=== PATIENT | male | born 1990 | race American Indian/Alaskan Native ===

== ENCOUNTER 2016-08-12 13:03 | Emergency (ER) | payer SELFPAY ==
[2016-08-12 14:04] VITALS: BP 143/90
[2016-08-12] MEDS ORDERED: DUONEB 0.5 MG-3 MG/3 ML SOLN IH ONE ×2 (14:05→15:26)
--- NOTE | 2016-08-12 14:09 | Emergency Department Report ---
Chief Complaint: Adult Asthma Stated Complaint: ASTHMA Time Seen by Provider: 08/12/16 14:07 - HPI History of Present Illness: 35-year-old known asthmatic comes in for shortness of breath that started last night. Patient reports that about every 30 minutes he was getting up to use his albuterol inhaler. Patient reports that he's run out of his inhaler as of last night. He denies any chest pain denies any lower leg edema he reports no past medical history currently takes only albuterol as needed. He has not been having frequent asthma attacks. - Exam Vital Signs: Vital Signs 08/12/16 13:59 Temperature 98.3 F Pulse Rate 96 H Respiratory 20 Rate Blood Pressure 143/90 O2 Sat by Pulse 97 Oximetry Physical Exam: Gen: alert oriented NAD Cardic: regular rate and rhythm no murmurs appreciated Resp: Expiratory wheezing Abdomen: Soft nontender nondistended normal bowel sounds. Mini neuro: Normal finger to nose exam, [id number] normal,h 4/5 all extrimities, Alert and oriented time 3 Crainal nerve II-IIX intact MSE screening note: Focused history and physical exam performed. Due to findings the following was ordered: Patient has been evaluated by this provider MST. DuoNeb has been ordered respiratory has been notified. Patient be evaluated in fast track ED Disposition for MSE Condition: Stable
--- NOTE | 2016-08-12 14:58 | Emergency Department Report ---
ED Shortness of Breath HPI - General Chief Complaint: Adult Asthma Stated Complaint: ASTHMA Time Seen by Provider: 08/12/16 14:07 Source: patient Mode of arrival: Ambulatory Limitations: No Limitations - History of Present Illness Initial Comments: Patient states he is out of his asthma medication. States also that he feels much better after getting breathing treatment here. Patient states he needs refill of asthma medications. MD Complaint: shortness of breath, "asthma attack" - Related Data Previous Rx's Medication Instructions Recorded Last Taken Type ALBUTEROL Inhaler [ProAir HFA 2 puff IH QID PRN #1 inhalation 08/12/16 Unknown Rx Inhaler] ALBUTEROL NEB's [Proventil 0.083% 2.5 mg IH TID PRN #30 neb 08/12/16 Unknown Rx NEBS] Docusate Sodium [Colace Clear CAP] 50 mg PO DAILY #3 capsule 08/12/16 Unknown Rx Prednisone [predniSONE (Sruthi) ER 50 mg PO QDAY #5 tablet. 08/12/16 Unknown Rx TAB] Allergies Allergy/AdvReac Type Severity Reaction Status Date / Time No Known Allergies Allergy Verified 08/12/16 14:04 ED Review of Systems ROS: Stated complaint: ASTHMA Other details as noted in HPI Constitutional: denies: chills, fever Eyes: denies: eye pain, eye discharge, vision change ENT: denies: ear pain, throat pain Respiratory: SOB at rest, wheezing (resolved now). denies: cough, shortness of breath Cardiovascular: denies: chest pain, palpitations Endocrine: no symptoms reported Gastrointestinal: denies: abdominal pain, nausea, diarrhea Genitourinary: denies: urgency, dysuria Musculoskeletal: denies: back pain, joint swelling, arthralgia Skin: denies: rash, lesions Neurological: denies: headache, weakness, paresthesias Psychiatric: denies: anxiety, depression Hematological/Lymphatic: denies: easy bleeding, easy bruising ED Past Medical Hx - Past Medical History Hx Asthma: Yes - Social History Smoking Status: Never Smoker Substance Use Type: None - Medications Home Medications: Home Medications Medication Instructions Recorded Confirmed Last Taken Type ALBUTEROL Inhaler [ProAir HFA 2 puff IH QID PRN #1 inhalation 08/12/16 Unknown Rx Inhaler] ALBUTEROL NEB's [Proventil 0.083% 2.5 mg IH TID PRN #30 neb 08/12/16 Unknown Rx NEBS] Docusate Sodium [Colace Clear CAP] 50 mg PO DAILY #3 capsule 08/12/16 Unknown Rx Prednisone [predniSONE (Sruthi) ER 50 mg PO QDAY #5 tablet. 08/12/16 Unknown Rx TAB] ED Physical Exam - General Limitations: No Limitations General appearance: alert, in no apparent distress - Head Head exam: Present: atraumatic, normocephalic - Eye Eye exam: Present: normal appearance, PERRL, EOMI - ENT ENT exam: Present: mucous membranes moist - Neck Neck exam: Present: normal inspection - Respiratory Respiratory exam: Present: normal lung sounds bilaterally. Absent: respiratory distress, wheezes, rales, rhonchi, stridor, chest wall tenderness, accessory muscle use - Cardiovascular Cardiovascular Exam: Present: regular rate, normal rhythm. Absent: systolic murmur, diastolic murmur, rubs, gallop - GI/Abdominal GI/Abdominal exam: Present: soft, normal bowel sounds - Rectal Rectal exam: Present: deferred - Extremities Exam Extremities exam: Present: normal inspection - Back Exam Back exam: Present: normal inspection. Absent: CVA tenderness (R), CVA tenderness (L) - Neurological Exam Neurological exam: Present: alert, oriented X3, CN II-XII intact - Psychiatric Psychiatric exam: Present: normal affect, normal mood - Skin Skin exam: Present: warm, dry, intact, normal color. Absent: rash ED Course Vital Signs 08/12/16 08/12/16 08/12/16 13:59 14:10 14:35 Temperature 98.3 F Pulse Rate 96 H Pulse Rate [ 91 H 96 H Posterior Bilateral Throughout] Respiratory 20 Rate Respiratory 22 18 Rate [Posterior Bilateral Throughout] Blood Pressure 143/90 O2 Sat by Pulse 97 Oximetry Critical care attestation.: If time is entered above; I have spent that time in minutes in the direct care of this critically ill patient, excluding procedure time. ED Disposition Clinical Impression: Medication refill, Asthma attack Disposition: DISCHARGED TO HOME OR SELFCARE Is pt being admited?: No Condition: Stable Instructions: Asthma (ED), Asthma in Children (ED) Prescriptions: ALBUTEROL Inhaler [ProAir HFA Inhaler] 2 puff IH QID PRN #1 inhalation PRN Reason: Shortness Of Breath ALBUTEROL NEB's [Proventil 0.083% NEBS] 2.5 mg IH TID PRN #30 neb PRN Reason: Wheezing Docusate Sodium [Colace Clear CAP] 50 mg PO DAILY #3 capsule Prednisone [predniSONE (Sruthi) ER TAB] 50 mg PO QDAY #5 tablet.
[2016-08-12] MEDS ORDERED: DELTASONE PO ONE (15:02)
== END 2016-08-12 16:43 | disposition home or self-care (01) ==
LOC: ED 13:03
DX: J45.909 Unspecified asthma, uncomplicated (principal)
CPT/HCPCS: 94640; 99283; J7512